=== PATIENT | male | born 1995 | race American Indian/Alaskan Native ===

== ENCOUNTER 2020-02-04 09:51 | Emergency (ER) | payer SELFPAY ==
[2020-02-04 09:56] VITALS: BP 119/81
[2020-02-04] MEDS ORDERED: ONDANSETRON 4 MG ODT TAB PO ONE (11:12)
[2020-02-04] MEDS ORDERED: SUMAtriptan SUCCINATE 6 MG/0.5 ML INJ SUB-Q ONE (11:12)
--- NOTE | 2020-02-04 11:18 | Emergency Department Report ---
ED Headache HPI - General Chief Complaint: Headache Stated Complaint: MIGRANES Time Seen by Provider: 02/04/20 11:11 - History of Present Illness Initial Comments: 24 y/o male comes in c/o headache times 2 days. Had N/V after taking Excedrin. Vomited once this morning. Denies any head injury. Has a history migraines. No fever or chills. Timing/Duration: other (2 days) Quality: constant, throbbing Head Injury Location: temporal (right) Recent Head Trauma: occasional headaches Associated Symptoms: nausea/vomiting. denies: facial pain, fever/chills, nasal congestion, nasal drainage, seizures, sinus infection, stiff neck Allergies/Adverse Reactions: Allergies No Known Allergies Allergy (Unverified 02/04/20 09:54) Home Medications: Ambulatory Orders Butalb/Acetamin/Caff 50-325-40 [Fioricet 50-325-40] 1 tab PO Q6HR PRN #12 tab 02/04/20 ED Review of Systems ROS: Stated complaint: MIGRANES Other details as noted in HPI ED Past Medical Hx - Past Medical History Previous Medical History?: Yes Hx Headaches / Migraines: Yes - Surgical History Past Surgical History?: Yes Additional Surgical History: Right shoulder - Social History Smoking Status: Current Every Day Smoker Substance Use Type: Marijuana - Medications Home Medications: Home Medications Medication Instructions Recorded Confirmed Last Taken Type Butalb/Acetamin/Caff 50-325-40 1 tab PO Q6HR PRN #12 tab 02/04/20 Unknown Rx [Fioricet 50-325-40] ED Physical Exam - General Limitations: No Limitations General appearance: alert, in no apparent distress - Head Head exam: Present: atraumatic, normocephalic - Eye Eye exam: Present: normal appearance - ENT ENT exam: Present: mucous membranes moist - Neck Neck exam: Present: normal inspection, full ROM - Expanded Neurological Exam Expanded Cranial nerves: EOM's Intact: Normal, Gag Reflex: Normal, Tongue Deviation: Normal, Nystagmus: Normal, Facial Sensation: Normal, Facial Palsy with Forehead Movement: Normal, Facial Palsy without Forehead Movement: Normal Cerebellar function: Finger to Nose: Normal, Heel to Talbot: Normal, Romberg: Normal Upper motor neuron: Tereso Neglect: Normal, Pronator Drift: Normal, Sensory Extinction: Normal Sensory exam: Upper Extremity Light Touch: Normal, Upper Extremity Pin Prick: Normal, Upper Extremity Temperature: Normal, UE 2 Point Discrimination: Normal, Lower Extremity Light Touch: Normal, Lower Extremity Pin Prick: Normal, Lower Extremity Temperature: Normal, LE 2 Point Discrimination: Normal Motor strength exam: RUE: 5, LUE: 5, RLE: 5, LLE: 5 Best Eye Response (Elizabeth): (4) open spontaneously Best Motor Response (Elizabeth): (6) obeys commands Best Verbal Response ([place]): (5) oriented Elizabeth Total: 15 - Psychiatric Psychiatric exam: Present: normal affect, normal mood - Skin Skin exam: Present: warm, dry, intact, normal color. Absent: rash ED Course Vital Signs 02/04/20 09:55 Temperature 98.4 F Pulse Rate 101 H Respiratory 18 Rate Blood Pressure 119/81 O2 Sat by Pulse 99 Oximetry ED Medical Decision Making - Medical Decision Making 24 y/o male comes in c/o headache times 2 days. Had N/V after taking Excedrin. Vomited once this morning. Denies any head injury. Has a history migraines. No fever or chills. imitrex and zofran ordered. Critical care attestation.: If time is entered above; I have spent that time in minutes in the direct care of this critically ill patient, excluding procedure time. ED Disposition Clinical Impression: Headache Disposition: DC-01 TO HOME OR SELFCARE Is pt being admited?: No Does the pt Need Aspirin: No Condition: Stable Instructions: Acute Headache (ED) Additional Instructions: Tke migraine medication as prescribed. Keep your appointment with your PCP on Thursday. Prescriptions: Butalb/Acetamin/Caff 50-325-40 [Fioricet 50-325-40] 1 tab PO Q6HR PRN #12 tab PRN Reason: Headache Referrals: PRIMARY CARE, [Primary Care Provider] - 3-5 Days Forms: Work/School Release Form(ED)
== END 2020-02-04 12:12 | disposition home or self-care (01) ==
LOC: ED 09:51
DX: R51.9 Headache, unspecified (principal); F17.200 Nicotine dependence, unspecified, uncomplicated; Z12.10 Encounter for screening for malignant neoplasm of intestinal tract, unspecified; Z90.49 Acquired absence of other specified parts of digestive tract; Z98.890 Other specified postprocedural states; Z79.899 Other long term (current) drug therapy
CPT/HCPCS: 96372; 99282; J3030; Q0162